=== PATIENT | male | born 1945 ===

== ENCOUNTER 2021-12-12 11:15 | Emergency (ER) | payer OTHER ==
[~2021-12-12] VITALS: Ht 175.3 cm; Wt 86.2 kg
[2021-12-12 11:26] VITALS: BP 190/74
[2021-12-12] MEDS ORDERED: ACET-1080 PO (13:28)
[2021-12-12] MEDS ORDERED: CEPH-322 PO (13:28)
== END 2021-12-12 13:37 | disposition home or self-care (01) ==
LOC: EDBD 11:15 → ER 11:15
DX: S92.252A Displaced fracture of navicular [scaphoid] of left foot, initial encounter for closed fracture (principal); S20.211A Contusion of right front wall of thorax, initial encounter; E11.9 Type 2 diabetes mellitus without complications; I10 Essential (primary) hypertension; V43.52XA Car driver injured in collision with other type car in traffic accident, initial encounter; Y93.89 Activity, other specified; Y92.488 Other paved roadways as the place of occurrence of the external cause; Y99.8 Other external cause status
CPT/HCPCS: 29125; 71046; 73130